=== PATIENT | female | born 1940 | race Caucasian/White ===

== ENCOUNTER → 2016-11-23 | Outpatient (CLI) | payer MEDICARE ==
[~2016-11-23] MED LIST: ASPI-110 PO; ASPI325T PO; ATOR20TA42 PO; ATOR40TA16 PO; CALC1TAB30 PO; CALC600T PO; FISH1000 PO; FISH120014 PO; HYDR-3288 PO; IMIT25TA PO; LEVO500T8 PO; METR500T10 PO; MIRA3350 PO; MIRA33504 PO; OCUVCAP PO; OCUVTAB PO; OMEGCAP PO; TRAM50TA PO
[2016-11-23 10:24] LABS: AUTOMATED NEUTROPHIL # 5.2 TH/MM3 (1.8-7.7); BASOPHIL % 0.4 % (0.0-2.0); EOSINOPHIL # 0.2 TH/MM3 (0-0.4); EOSINOPHIL % 2.2 % (0.0-4.0); HEMATOCRIT 39.8 % (35.0-46.0); HEMO FLAGS DIFF FINAL; LYMPH % 19.3 % (9.0-44.0); LYMPHOCYTE # 1.4 TH/MM3 (1.0-4.8); MEAN CORPUSCULAR HEMOGLOBIN 30.8 PG (27.0-34.0); MEAN CORPUSCULAR HGB CONC 34.6 % (32.0-36.0); MONO % 8.4 % (0.0-8.0); NEUT % 69.7 % (16.0-70.0); PLATELET COUNT 198 TH/MM3 (150-450); RED BLOOD COUNT 4.47 MIL/MM3 (4.00-5.30); RED CELL DISTRIBUTION WIDTH 13.5 % (11.6-17.2); WHITE BLOOD COUNT 7.5 TH/MM3 (4.0-11.0)
--- NOTE | 2016-11-23 13:49 | EKG ---
Date Performed: 11/23/2016 Time Performed: 10:04:20 PTAGE: 75 years EKG: BASELINE ARTIFACT PRESENT. Sinus rhythm NORMAL ECG NO PREVIOUS TRACING DOCTOR: Turner Quintana Interpretating Date/Time 11/23/2016 13:46:25
== END ==
LOC: CPRE 09:43
PROVIDERS: ATTEND Orthopaedic Surgery Orthopaedic Surgery of the Spine
DX: Z01.812 Encounter for preprocedural laboratory examination (principal); Z01.810 Encounter for preprocedural cardiovascular examination; Z01.818 Encounter for other preprocedural examination; M48.06 Spinal stenosis, lumbar region
CPT/HCPCS: 36415; 85025; 93005

== ENCOUNTER → 2016-12-07 | Day surgery (SDC) | payer MEDICARE ==
[~2016-12-07] VITALS: Ht 163.8 cm; Wt 63.2 kg
[~2016-12-07] MED LIST changes: +ACETAMINOPHEN 1000 MG/100 ML VIAL IV ONE; +ACETAMINOPHEN/HYDROcodone 325 MG/7.5 MG TAB PO PRN; +ARTIFICIAL TEARS OPTH OINT 3.5 APPLIC/3.5 GM TUBO ONE; -ASPI325T PO; -ATOR20TA42 PO; +BUPIVACAINE/EPINEPHRINE 0.25% 50 ML VIAL INFIL ONE; +CHLORHEXIDINE GLUCONATE 2 % 1 PACK (2 CLOTHS) TOPICAL PRN; +CLINDAMYCIN PHOS 600 MG/4 ML VIAL ONE; +DEXAMETHASONE SOD PHOS 4 MG/ML VIAL ONE; +FAMOTIDINE 20 MG/2 ML VIAL ONE; -FISH1000 PO; +GELATIN 12 MM/7 MM FOAM ONE; +GENTAMICIN SULFATE 80 MG/2 ML VIAL IRRIGATION ONE; +GENTAMICIN SULFATE 80 MG/2 ML VIAL ONE; -IMIT25TA PO; +INSULIN HUMAN REGULAR 1,000 UNITS/10 ML VIAL SQ PRN; +LACTATED RINGER'S 1000 ML INJ 1,000 ML IV ONE; +LACTATED RINGER'S 1000 ML IV PRN; +METOPROLOL TARTRATE 25 MG TAB PO PRN; +MIDAZOLAM HCL 2 MG/2 ML VIAL ONE; +MORPHINE SULFATE 4 MG/ML INJ IV PUSH PRN; +NEOSTIGMINE 3 MG/3 ML SYR IV ONE; -OCUVTAB PO; +ONDANSETRON HCL 4 MG/2 ML VIAL IV PUSH ONE; +POVIDONE IODINE 5% (ANTISEPSIS KIT) 4 APPLICATIONS EACH NARE PRN; +POVIDONE IODINE 7.5% SCRUB 118 ML BOTTLE TOPICAL SCH; +PROPOFOL 200 MG/20 ML AMP IV ONE; +SODIUM CHLOR 0.9% 1000 ML INJ 1,000 ML IV SCH; +SODIUM CHLORID 0.9% 500 ML IV PRN; +SODIUM CHLORIDE 10 ML FLUSH BID IV FLUSH SCH; +SODIUM CHLORIDE 10 ML FLUSH PRN IV FLUSH; +THROMBIN (TOPICAL) 5,000 UNIT VIAL ONE; +ceFAZolin 2 GM PREMIX 50 ML ONE; +fentaNYL CITRATE 250 MCG/5 ML AMP ONE
[2016-12-07 07:40] VITALS: BP 142/69; PULSE 76; RESP 18; TEMP 97.9; O2SAT 96
--- NOTE | 2016-12-07 11:48 | PD.OP ---
cc: Juan Ritchie. Operative Report Date of Surgery: December 07, 2016 Preoperative Diagnosis: Lumbar spinal stenosis, L4 5. Lumbar spinal stenosis, L5-S1. Left lumbosacral radiculopathy Postoperative Diagnosis: Same Procedure: Lumbar laminectomy L4 5 the left, lateral recess decompression. Lumbar laminectomy from the left L5-S1, lateral recess decompression. Use of dilation port and microscope Anesthesia: Gen. Surgeon: Juan Ritchie Dietetic Tech(s): COLLINS Zuleta Operation and Findings: EBL: 50 cc INDICATION: Patient is a 75-year-old female with significant left hip and leg pain. Investigative studies shows evidence of a high-grade lateral recess stenosis L4 5 and a similar finding L5-S1. Despite conservative care including epidural steroid injections, medications and physical therapy, the patient continued painful and symptomatically. She presents for surgical treatment. NOTE: Kiera Zuleta PA-C was present for the entire surgical procedure as my first beater. In my medical opinion her skill and care was necessary for the proper management of this patient. PROCEDURE: The patient was brought to the operating room and anesthetized in the supine position. The patient was rolled to a prone position on a Coleman frame on a Mumtaz table. All pressure points were protected in the back was scrubbed with alcohol followed by Hibiclens followed by ChloraPrep and draped sterilely. A timeout was done and antibiotics were given. AP and lateral radiographic images were used to identify the proper levels and perform skin markings. We started from the left side at the L4 5 level. A paramedian incision was made and an off-midline fascial incision was made. A dilating system was placed down to the interlaminar space and held provisionally to the side of the table. The microscope was brought into the field. A high-speed bur under the microscope was used to perform a partial bilateral laminectomy from that side. A lateral recess decompression on the left side was accomplished using straight and angled Kerrison punches. A partial medial facetectomy was accomplished. The crossing and exiting nerve roots were completely decompressed. We moved to the L5-S1 level. A separate fascial incision was made. A dilating system was placed down to the interlaminar space and held provisionally to the side of the table. The microscope was brought back into the field. A high- speed bur under the microscope was used to perform a partial bilateral laminectomy from that side. A lateral recess decompression on the left side was accomplished using straight and angled Kerrison punches. A partial medial facetectomy was accomplished. The crossing and exiting nerve roots were completely decompressed. The wound was irrigated copiously. Hemostasis was controlled. The deep fascia was approximated with interrupted 0 Vicryl suture subcutaneous suture with 2-0 Vicryl suture and skin with running intradermal 3-0 Vicryl followed by Dermabond. A field block with local anesthesia was utilized. A sterile dressing was applied. The sponge count and needle counts and instrument counts were all correct. The patient tolerated the procedure well as taken to the recovery room in satisfactory condition. FINDINGS: Was evidence of a high-grade lateral recess stenosis at both levels. The most significant compression involved mostly the S1 nerve root below the L5- S1 disc space. In the lateral recess at the disc space at L4 5 there is also a moderate to high-grade L5 nerve root compression. Juan Ritchie MD December 07, 2016 11:48
--- NOTE | 2016-12-07 12:15 | RADRPT ---
EXAM DATE/TIME: 12/07/2016 10:45 [facility] COMPARISON: No previous studies available for comparison. INDICATIONS : Lumbar spine L4-5 L5-S1 MEDICAL HISTORY : None. SURGICAL HISTORY : None. ENCOUNTER: Initial ACUITY: 1 day PAIN SCORE: Non-responsive. LOCATION: Lumbar L4-5 L5-S1 CONCLUSION: Lateral fluoroscopic image demonstrates temporary probe posteriorly at L5-S1 level.. Travis Beltran MD on December 07, 2016 at 12:13 Board Certified Radiologist. This report was verified electronically.
[2016-12-07 14:27] VITALS: BP 140/79; PULSE 83; RESP 20; TEMP 97.6; O2SAT 97
== END | disposition home or self-care (01) ==
LOC: HSDC 06:35
PROVIDERS: ATTEND Orthopaedic Surgery Orthopaedic Surgery of the Spine
DX: M48.06 Spinal stenosis, lumbar region (principal); M48.07 Spinal stenosis, lumbosacral region; M54.17 Radiculopathy, lumbosacral region
CPT/HCPCS: 00630; 63047; 63048; 72020; 76000; J0131; J1100; J1580; J2250; J2405; J2710; J3010; J7120; J0690

== ENCOUNTER → 2017-01-18 | Outpatient (CLI) | payer MEDICARE ==
[~2017-01-18] MED LIST changes: -ACETAMINOPHEN 1000 MG/100 ML VIAL IV ONE; -ACETAMINOPHEN/HYDROcodone 325 MG/7.5 MG TAB PO PRN; -ARTIFICIAL TEARS OPTH OINT 3.5 APPLIC/3.5 GM TUBO ONE; -BUPIVACAINE/EPINEPHRINE 0.25% 50 ML VIAL INFIL ONE; -CHLORHEXIDINE GLUCONATE 2 % 1 PACK (2 CLOTHS) TOPICAL PRN; -CLINDAMYCIN PHOS 600 MG/4 ML VIAL ONE; -DEXAMETHASONE SOD PHOS 4 MG/ML VIAL ONE; -FAMOTIDINE 20 MG/2 ML VIAL ONE; -GELATIN 12 MM/7 MM FOAM ONE; -GENTAMICIN SULFATE 80 MG/2 ML VIAL IRRIGATION ONE; -GENTAMICIN SULFATE 80 MG/2 ML VIAL ONE; -INSULIN HUMAN REGULAR 1,000 UNITS/10 ML VIAL SQ PRN; -LACTATED RINGER'S 1000 ML INJ 1,000 ML IV ONE; -LACTATED RINGER'S 1000 ML IV PRN; -METOPROLOL TARTRATE 25 MG TAB PO PRN; -MIDAZOLAM HCL 2 MG/2 ML VIAL ONE; -MORPHINE SULFATE 4 MG/ML INJ IV PUSH PRN; -NEOSTIGMINE 3 MG/3 ML SYR IV ONE; -ONDANSETRON HCL 4 MG/2 ML VIAL IV PUSH ONE; -POVIDONE IODINE 5% (ANTISEPSIS KIT) 4 APPLICATIONS EACH NARE PRN; -POVIDONE IODINE 7.5% SCRUB 118 ML BOTTLE TOPICAL SCH; -PROPOFOL 200 MG/20 ML AMP IV ONE; -SODIUM CHLOR 0.9% 1000 ML INJ 1,000 ML IV SCH; -SODIUM CHLORID 0.9% 500 ML IV PRN; -SODIUM CHLORIDE 10 ML FLUSH BID IV FLUSH SCH; -SODIUM CHLORIDE 10 ML FLUSH PRN IV FLUSH; -THROMBIN (TOPICAL) 5,000 UNIT VIAL ONE; -ceFAZolin 2 GM PREMIX 50 ML ONE; -fentaNYL CITRATE 250 MCG/5 ML AMP ONE
[2017-01-18 15:55] LABS: AUTOMATED NEUTROPHIL # 4.3 TH/MM3 (1.8-7.7); BASOPHIL % 0.5 % (0.0-2.0); EOSINOPHIL # 0.1 TH/MM3 (0-0.4); EOSINOPHIL % 1.9 % (0.0-4.0); HEMATOCRIT 39.4 % (35.0-46.0); HEMO FLAGS DIFF FINAL; LYMPH % 22.4 % (9.0-44.0); LYMPHOCYTE # 1.4 TH/MM3 (1.0-4.8); MEAN CELL VOLUME 90.1 FL (80.0-100.0); MEAN CORPUSCULAR HEMOGLOBIN 30.1 PG (27.0-34.0); MEAN CORPUSCULAR HGB CONC 33.5 % (32.0-36.0); MONO % 8.2 % (0.0-8.0); PLATELET COUNT 179 TH/MM3 (150-450); RED BLOOD COUNT 4.37 MIL/MM3 (4.00-5.30); RED CELL DISTRIBUTION WIDTH 13.8 % (11.6-17.2); WHITE BLOOD COUNT 6.4 TH/MM3 (4.0-11.0)
[2017-01-18 15:58] LABS: BLOOD, URINE TRACE (NEG); GLUCOSE,URINE NEG (NEG); KETONE, URINE NEG (NEG); NITRITE,URINE NEG (NEG); SQUAMOUS EPITHELIAL CELL URINE <1 /hpf (0-5); URINE COLOR LIGHT-YELLOW (YELLW/STRAW)
[2017-01-18 16:25] LABS: ALT (GPT) 25 U/L (10-53); AMYLASE 28 U/L (25-115); ANION GAP 7 MEQ/L (5-15); AST (GOT) 18 U/L (15-37); BICARBONATE 28.1 MEQ/L (21.0-32.0); BLOOD UREA NITROGEN 19 MG/DL (7-18); CHLORIDE 105 MEQ/L (98-107); GLOMERULAR FILTRATION RATE 66 ML/MIN (>89); POTASSIUM 3.8 MEQ/L (3.5-5.1); SODIUM (NA) 140 MEQ/L (136-145)
[2017-01-18 16:28] LABS: ALKALINE PHOSPHATASE 103 U/L (45-117); TOTAL BILIRUBIN ADULT 0.4 MG/DL (0.2-1.0)
== END ==
LOC: PLAB 11:29
PROVIDERS: ATTEND Family Medicine
DX: R10.9 Unspecified abdominal pain (principal); R50.9 Fever, unspecified; R82.90 Unspecified abnormal findings in urine
CPT/HCPCS: 36415; 80053; 81001; 82150; 83690; 85025; 87040; 87086

== ENCOUNTER 2017-01-19 11:33 | Emergency (ER) | payer MEDICARE ==
[~2017-01-19] VITALS: Ht 162.6 cm; Wt 61.7 kg
[~2017-01-19 11:33] MED LIST changes: -CALC600T PO; -LEVO500T8 PO; -METR500T10 PO; -MIRA3350 PO; -OMEGCAP PO; -TRAM50TA PO
[2017-01-19 11:38] VITALS: BP 150/90; PULSE 86; RESP 16; TEMP 97.9; O2SAT 99
[2017-01-19] MEDS ORDERED: SODIUM CHLOR 0.9% 1000 ML INJ 1,000 ML IV SCH (11:50)
[2017-01-19] MEDS ORDERED: CALC600T PO (11:58)
[2017-01-19] MEDS ORDERED: LEVO500T8 PO (11:58)
[2017-01-19] MEDS ORDERED: METR500T10 PO (11:58)
[2017-01-19] MEDS ORDERED: MIRA3350 PO (11:58)
[2017-01-19] MEDS ORDERED: OMEGCAP PO (11:58)
[2017-01-19] MEDS ORDERED: SODIUM CHLORIDE 0.9% FLUSH 10 ML FLUSH IV FLUSH PRN (12:00)
[2017-01-19] MEDS ORDERED: ONDANSETRON HCL 4 MG/2 ML VIAL IV ONE (12:15)
[2017-01-19] MEDS ORDERED: MORPHINE SULFATE 4 MG/ML INJ IV PUSH ONE (12:15)
[2017-01-19 12:23] LABS: BASOPHIL % 0.4 % (0.0-2.0); EOSINOPHIL # 0.1 TH/MM3 (0-0.4); EOSINOPHIL % 0.8 % (0.0-4.0); HEMATOCRIT 38.8 % (35.0-46.0); HEMO FLAGS DIFF FINAL; LYMPH % 16.6 % (9.0-44.0); LYMPHOCYTE # 1.1 TH/MM3 (1.0-4.8); MEAN CORPUSCULAR HGB CONC 34.4 % (32.0-36.0); MONO % 5.8 % (0.0-8.0); NEUT % 76.4 % (16.0-70.0); PLATELET COUNT 181 TH/MM3 (150-450); RED BLOOD COUNT 4.31 MIL/MM3 (4.00-5.30); RED CELL DISTRIBUTION WIDTH 12.7 % (11.6-17.2); WHITE BLOOD COUNT 6.6 TH/MM3 (4.0-11.0)
[2017-01-19 12:31] VITALS: BP 168/86; PULSE 77; RESP 18; O2SAT 99
--- NOTE | 2017-01-19 12:45 | PD ---
HPI Chief Complaint: Abdominal Pain Time Seen by Provider: 11:55 Travel History International Travel<30 days: No Contact w/Intl Traveler<30days: No Traveled to known affect area: No History of Present Illness HPI Is a 76 year-old woman who presents to the emergency department complaining of 2 weeks of left lower quadrant abdominal pain. She had a lumbar laminectomy done about [address] Juan Amador. She had done well. She started getting this abdominal pain about 2 weeks ago. Is been intermittent, and sometimes severe. Is been worsening over the past couple days. She saw Dr. Mchugh yesterday who diagnosed her with diverticulitis and started her on Levaquin and Flagyl. She had blood work done, was sent for a CT scan today. She started having worsening pain in the morning and so she came here instead. She was taking oxycodone for pain for her back. She is not now. She has chronic constipation and takes MiraLAX every other day normally. She started taking it every day after back surgery. Last bowel movement was last night and she does not feel like she's been more constipated. Only abdominal surgical histories a hysterectomy, and surgery for kidney stones. She's never had diverticulitis before. She otherwise has been feeling generally well and healthy. History Past Medical History Narrative Medical Hypertension, not on medication Hyperlipidemia Migraines Influenza Vaccination: Yes Social History Alcohol Use: No Tobacco Use: No Allergies-Medications (Allergen,Severity, Reaction): Coded Allergies: Advil (Verified Allergy, Severe, RED RASH ALL OVER BODY, 01/19/17) Darvocet-N 100 (Verified Allergy, Severe, VOMITING, 01/19/17) Keflex (Verified Allergy, Severe, HIVES, 01/19/17) Pneumococcal Vaccine (Verified Allergy, Severe, Swelling, 01/19/17) Tetanus Toxoid (Verified Allergy, Severe, Swelling, 01/19/17) Uncoded Allergies: NUMBER 5 DYE (Adverse Reaction, Severe, HIVES, 08/19/10) Reported Meds & Prescriptions Reported Meds & Active Scripts Active [place] (Hydrocodone-Acetaminophen) 7.5-325 mg Tab 1 Tab PO Q4H PRN Reported Levofloxacin 500 Mg Tablet 500 Mg PO DAILY Metronidazole 500 Mg Tab 500 Mg PO TID Miralax Powder (Polyethylene Glycol 3350 Powder) 17 Gm Powd 17 Gm PO EVERY OTHER DAY Mix and dissolve one measuring cap-ful (17 grams) in water or juice. [place]-3 Fish Oil/Vitamin (Fish Oil-Cholecalciferol) 1,000-1,000 Mg Cap 1 Cap PO DAILY Calcium/Vitamin D (Calcium Carbonate-Vitamin D) 600-400 Mg-Unit Tab 2 Tab PO DAILY Aspirin 81 (Aspirin) 81 Mg Tabdr 81 Mg PO DAILY Ocuvite Lutein (Multiple Vitamins W/ Minerals) 1 Cap Cap 1 Cap PO DAILY Atorvastatin (Atorvastatin Calcium) 40 Mg Tab 40 Mg PO EVERY OTHER DAY Review of Systems Except as stated in HPI: all other systems reviewed are Neg Physical Exam Narrative GENERAL: Well-appearing 76 year-old woman, no acute distress. SKIN: Focused skin assessment warm/dry. HEAD: Atraumatic. Normocephalic. EYES: Pupils equal and round. No scleral icterus. No injection or drainage. ENT: No nasal bleeding or discharge. Mucous membranes pink and moist. NECK: Trachea midline. No JVD. CARDIOVASCULAR: Regular rate and rhythm. No murmur appreciated. RESPIRATORY: No accessory muscle use. Clear to auscultation. Breath sounds equal bilaterally. GASTROINTESTINAL: Abdomen is soft. Maybe a little bit distended. She has epigastric and left lower quadrant tenderness to palpation. No rebound or guarding. MUSCULOSKELETAL: No obvious deformities. No clubbing. No cyanosis. No edema. NEUROLOGICAL: Awake and alert. No obvious cranial nerve deficits. Motor grossly within normal limits. Normal speech. PSYCHIATRIC: Appropriate mood and affect; insight and judgment normal. Data Data Last Documented VS Vital Signs Date Time Temp Pulse Resp B/P Pulse Ox O2 Delivery O2 Flow Rate FiO2 01/19/17 12:50 18 01/19/17 12:31 77 168/86 99 Room Air 01/19/17 11:38 97.9 Orders Complete Blood Count With Diff (01/19/17 11:50) Lipase (01/19/17 11:50) Lactic Acid (01/19/17 11:50) Iv Access Insert/Monitor (01/19/17 11:50) NPO (01/19/17 11:50) Sodium Chlor 0.9% 1000 Ml Inj (Ns 1000 M (01/19/17 11:50) Sodium Chloride 0.9% Flush (Ns Flush) (01/19/17 12:00) Morphine Inj (Morphine Inj) (01/19/17 12:15) Ondansetron Inj (Zofran Inj) (01/19/17 12:15) Ct Abd/Pel W Iv Contrast(Rout) (01/19/17 ) Iohexol 350 Inj (Omnipaque 350 Inj) (01/19/17 12:57) Labs Laboratory Tests Test 01/19/17 12:15 White Blood Count 6.6 TH/MM3 Red Blood Count 4.31 MIL/MM3 Hemoglobin 13.3 GM/DL Hematocrit 38.8 % Mean Corpuscular Volume 90.0 FL Mean Corpuscular Hemoglobin 31.0 PG Mean Corpuscular Hemoglobin 34.4 % Concent Red Cell Distribution Width 12.7 % Platelet Count 181 TH/MM3 Mean Platelet Volume 8.2 FL Neutrophils (%) (Auto) 76.4 % Lymphocytes (%) (Auto) 16.6 % Monocytes (%) (Auto) 5.8 % Eosinophils (%) (Auto) 0.8 % Basophils (%) (Auto) 0.4 % Neutrophils # (Auto) 5.0 TH/MM3 Lymphocytes # (Auto) 1.1 TH/MM3 Monocytes # (Auto) 0.4 TH/MM3 Eosinophils # (Auto) 0.1 TH/MM3 Basophils # (Auto) 0.0 TH/MM3 CBC Comment DIFF FINAL Differential Comment Lactic Acid Level 1.3 mmol/L Lipase 94 U/L [facility] Medical Decision Making Medical Screen Exam Complete: Yes Emergency Medical Condition: Yes Interpretation(s) CBC is unremarkable. Lactate is unremarkable Lipase is normal CT abdomen and pelvis: Diverticulosis without inflammation suggest diverticulitis. Differential Diagnosis Diverticulitis, constipation, abscess, gastritis, colitis, other Narrative Course Medical decision making This 76 year-old woman presents to the emergency department complaining of left- sided abdominal pain. Suspect diverticulitis. She doesn't seem to be constipated. I don't think she has a kidney stone. I don't think she has urinary retention or complication from her back surgery. FINAL: 76 year-old woman, left-sided abdominal pain, etiology unclear. My suspicion is constipation although the patient states she had a normal bowel movement yesterday. She does take MiraLAX daily. I recommend increase use of the MiraLAX. Diverticulitis also possible. She started antibiotics yesterday. They don't see any significant inflammation although she does have diverticulosis. We'll recommend continuing antibiotics. I don't think this is a combination of her back surgery. She otherwise looks well. We'll recommend Tylenol for pain, tramadol if needed for severe pain, return to the emergency department for worsening symptoms, and close outpatient follow-up. Diagnosis Primary Impression: Abdominal pain Additional Impression: Lung nodule Additional Instructions: Continue antibiotics as prescribed by your primary physician. Take Tylenol as needed for pain. Take tramadol if needed for severe pain. Take MiraLAX daily and titrate to regular loose bowel movement. Follow-up with Dr. Mchugh on Sunday. You will also need a repeat CT in 6 months to follow-up on a 7 mm nodule in the right lower lobe of your lung. Return to the emergency department for any worsening abdominal pain, high fevers , vomiting, bloody diarrhea, or any other new or worsening symptoms. Med/Other Pt SpecificInfo: Prescription(s) given Scripts Tramadol 50 Mg Tab50 Mg PO Q8H PRN (PAIN) #15 TAB Ref 0 Prov:Russ Lujan MD 01/19/17 Disposition: 01 DISCHARGE HOME Condition: Stable Russ Lujan MD Jan 19, 2017 12:45
[2017-01-19] MEDS ORDERED: IOHEXOL 350 MG/ML 10 ML VIAL (for RAD DIAG) IV ONE (12:57)
--- NOTE | 2017-01-19 13:13 | RADRPT ---
EXAM DATE/TIME: 01/19/2017 12:42 [facility] COMPARISON: No previous studies available for comparison. INDICATIONS : Left lower quadrant pain. IV CONTRAST: 85 cc Omnipaque 350 (iohexol) IV ORAL CONTRAST: No oral contrast ingested. RADIATION DOSE: 7.88 CTDIvol (mGy) MEDICAL HISTORY : Renal calculi. Cerebrovascular disease. Hypertension. SURGICAL HISTORY : Hysterectomy. Lumbar laminectomy. ENCOUNTER: Initial ACUITY: 2 weeks PAIN SCALE: 9/10 LOCATION: Left lower quadrant TECHNIQUE: Volumetric scanning of the abdomen and pelvis was performed. Using automated exposure control and ad justment of the mA and/or kV according to patient size, radiation dose was kept as low as reasonably achievable to obtain optimal diagnostic quality images. DICOM format image data is available electro nically for review and comparison. FINDINGS: There is a 7 mm nodule in the right lower lobe, noncalcified. Additional calcified granulomata are pr esent lungs. Mild fatty liver. Spleen, adrenals, kidneys and pancreas demonstrate no acute findings. Multiple bila teral renal cysts measuring up to 6.1 cm on the right and 5.6 cm on the left. There is no free fluid. No bowel obstruction. No adenopathy. There is colonic diverticulosis without evidence for diverticulitis. There is a mild rotatory fracture lumbar levoscoliosis. CONCLUSION: 1. 7 mm nodule right lower lobe indeterminate. Followup noncontrast chest CT recommended in 6 months. 2. No acute findings within the abdomen and pelvis. Colonic diverticulosis without diverticulitis. La rge bilateral renal cysts. Mild dilatation of the right renal collecting system. Small nonobstructing calcifications in the right kidney. Jean Claude Kramer MD on January 19, 2017 at 13:05 Board Certified Radiologist. This report was verified electronically.
[2017-01-19] MEDS ORDERED: TRAM50TA PO (13:32)
[2017-01-19 14:04] VITALS: BP 160/78; PULSE 78; RESP 16; O2SAT 98
== END 2017-01-19 14:12 | disposition home or self-care (01) ==
LOC: PHED 11:33
DX: R10.32 Left lower quadrant pain (principal); R91.1 Solitary pulmonary nodule; I10 Essential (primary) hypertension; E78.5 Hyperlipidemia, unspecified; Z98.890 Other specified postprocedural states; Z86.69 Personal history of other diseases of the nervous system and sense organs
CPT/HCPCS: 74177; 83605; 83690; 85025; 96361; 96374; 96375; 99285; J2270; J2405; J7030; Q9967

== ENCOUNTER 2017-11-26 12:26 | Emergency (ER) | payer MEDICARE ==
[~2017-11-26] VITALS: Ht 162.6 cm; Wt 62.7 kg
[~2017-11-26 12:26] MED LIST changes: -ASPI-110 PO; +ASPI1TAB57 PO; -CALC1TAB30 PO; +CALC600T PO; -FISH120014 PO; +LEVO500T8 PO; +METR1TAB76 PO; +MIRA3350 PO; -MIRA33504 PO; +OMEGCAP PO; +TRAM50TA PO
[2017-11-26 12:39] VITALS: BP 196/88; PULSE 79; RESP 16; TEMP 99; O2SAT 97
--- NOTE | 2017-11-26 14:49 | RADRPT ---
EXAM DATE/TIME: 11/26/2017 14:07 [facility] COMPARISON: CT ABDOMEN & PELVIS W CONTRAST, January 19, 2017, 12:42. INDICATIONS : Fall, left posterior pelvic pain. MEDICAL HISTORY : None. SURGICAL HISTORY : lumbar laminectomy ENCOUNTER: Initial ACUITY: 1 day PAIN SCORE: 5/10 LOCATION: Left posterior pelvis FINDINGS: AP view of the pelvis demonstrates no fracture or dislocation. The bones are undermineralized. Sacroi liac joints demonstrate no abnormality. There is moderate right and mild left hip joint osteoarthriti s with joint space narrowing and osteophytes. Stable area of sclerosis is present in the right intert rochanteric region. Soft tissues demonstrate no acute finding. There is degenerative disc disease in the visualized inferior lumbar spine. CONCLUSION: 1. No acute pelvis abnormality is identified. 2. 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 Andrea Carmichael MD on November 26, 2017 at 14:44 Board Certified Radiologist. This report was verified electronically.
--- NOTE | 2017-11-26 14:51 | RADRPT ---
EXAM DATE/TIME: 11/26/2017 14:07 [facility] COMPARISON: No previous studies available for comparison. INDICATIONS : Fall, left knee pain and bruising. MEDICAL HISTORY : None. SURGICAL HISTORY : lumbar laminectomy ENCOUNTER: Initial ACUITY: 1 day PAIN SCORE: 5/10 LOCATION: Left knee FINDINGS: 4 views of the left knee demonstrate no fracture or dislocation. The bones are undermineralized. Ther e is mild medial compartment joint space narrowing with medial compartment osteophytes. No significan t joint effusion is identified. Small patellar osteophytes are present. No soft tissue abnormality is seen. CONCLUSION: No acute left knee abnormality is identified. There is medial compartment osteoarthritis. Andrea Carmichael MD on November 26, 2017 at 14:46 Board Certified Radiologist. This report was verified electronically.
--- NOTE | 2017-11-26 14:54 | RADRPT ---
EXAM DATE/TIME: 11/26/2017 14:07 [facility] COMPARISON: No previous studies available for comparison. INDICATIONS : Fall, Left humerus pain. MEDICAL HISTORY : None. SURGICAL HISTORY : lumbar laminectomy ENCOUNTER: Initial ACUITY: 1 day PAIN SCORE: 5/10 LOCATION: Left humerus FINDINGS: Two view examination of the left humerus demonstrates no evidence of fracture or dislocation. Bony m ineralization is normal. Soft tissue abnormality with lucency in the distal posterior arm. No radio paque foreign bodies. CONCLUSION: Osseous structures of the arm are grossly. William Wilcox MD on November 26, 2017 at 14:52 Board Certified Radiologist. This report was verified electronically.
--- NOTE | 2017-11-26 15:08 | RADRPT ---
EXAM DATE/TIME: 11/26/2017 14:18 [facility] COMPARISON: No previous studies available for comparison. INDICATIONS : Fall, left hand pain and bruising 1st metacarpal. MEDICAL HISTORY : None. SURGICAL HISTORY : lumbar laminectomy ENCOUNTER: Initial ACUITY: 1 day PAIN SCORE: 0/10 LOCATION: Left hand FINDINGS: Three-view examination demonstrates diffuse osteopenia. There is moderate severity osteoarthritic ch yeimy in the 1st CMC articulation without evidence of fracture or dislocation. No radiopaque foreign bodies. No significant arthropathy and interphalangeal joints. CONCLUSION: 1. No evidence of recent bony injury. 2. Moderate severity osteoarthritis 1st CMC articulation without evidence of fracture or dislocation. William Wilcox MD on November 26, 2017 at 14:53 Board Certified Radiologist. This report was verified electronically.
--- NOTE | 2017-11-26 15:30 | PD ---
HPI Chief Complaint: Musculoskeletal Complaint Time Seen by Provider: 13:42 Travel History International Travel<30 days: No Contact w/Intl Traveler<30days: No Traveled to known affect area: No History of Present Illness HPI This is a 76-year-old female here for left knee, hand, arm pain after she tripped and fell from a standing position. She reports she was walking on a sidewalk today when she tripped on uneven sidewalk falling forward onto left flexed knee and left upper extremity. She did sustain an abrasion to her chin caused by the ground. There was no loss of consciousness. She is not anticoagulated. She remembers the entire event. Denies headache, visual changes, neck pain, chest pain, shortness of breath, abdominal pain, paresthesia or weakness of the extremities. She reports constant, aching, nonradiating pain in the left hand and knee. Symptom severity is moderate. No aggravating or alleviating factors. PFSH Past Medical History Blood Disorders: No Cancer: Yes (SKIN CANCERS) Cardiovascular Problems: No High Cholesterol: Yes Diabetes: No Diminished Hearing: No Endocrine: No Gastrointestinal Disorders: Yes (HX ULCER AND GERD) Genitourinary: No Hepatitis: No Hiatal Hernia: No Immune Disorder: No Implanted Vascular Access Dvce: No Kidney Stones: Yes (MULTIPLE TIMES & REMOVAL BY SURGICAL INTERVENTION) Musculoskeletal: Yes (LUMBAR LAMINECTOMY NOVEMBER 2016) Neurologic: Yes ("MINI"STROKE 08/17/2013, PAST HX MIGRAINES) Psychiatric: No Reproductive: No Respiratory: No Immunizations Current: Yes (PT HAS DEVELOPED ALLERGIC RX TO PNEUMONIA & TETANUS VACCINES) Migraines: Yes Thyroid Disease: No Tetanus Vaccination: < 5 Years Influenza Vaccination: Yes ?: Not Past Surgical History AICD: No Body Medical Devices: HARDWARE RIGHT ELBOW Ear Surgery: Yes (BILATERAL CATARACT) Eye Surgery: Yes (BILAT CATARACTS) Genitourinary Surgery: Yes (SURGERY X2 FOR KIDNEY STONES) Gynecologic Surgery: Yes (HYSTERECTOMY) Hysterectomy: Yes Joint Replacement: No Pacemaker: No Thoracic Surgery: Yes (LEFT LUMPECTOMY) Tonsillectomy: Yes Other Surgery: Yes (CYST REMOVED LT BREAST, ) Social History Alcohol Use: No Tobacco Use: No Substance Use: No Allergies-Medications (Allergen,Severity, Reaction): Coded Allergies: acetaminophen (Unverified Allergy, Severe, VOMITING, 11/26/17) cephalexin (Unverified Allergy, Severe, HIVES, 11/26/17) ibuprofen (Unverified Allergy, Severe, RED RASH ALL OVER BODY, 11/26/17) pneumococcal vaccine (Unverified Allergy, Severe, Swelling, 11/26/17) propoxyphene (Unverified Allergy, Severe, VOMITING, 11/26/17) tetanus toxoid, adsorbed (Unverified Allergy, Severe, Swelling, 11/26/17) Uncoded Allergies: NUMBER 5 DYE (Adverse Reaction, Severe, HIVES, 08/19/10) Reported Meds & Prescriptions Reported Meds & Active Scripts Active Tramadol (Tramadol HCl) 50 Mg Tab 50 Mg PO Q8H PRN [place] (Hydrocodone-Acetaminophen) 7.5-325 mg Tab 1 Tab PO Q4H PRN Reported Levofloxacin 500 Mg Tablet 500 Mg PO DAILY Metronidazole 500 Mg Tab 500 Mg PO TID Miralax Powder (Polyethylene Glycol 3350 Powder) 17 Gm Powd 17 Gm PO EVERY OTHER DAY Mix and dissolve one measuring cap-ful (17 grams) in water or juice. [place]-3 Fish Oil/Vitamin (Fish Oil-Cholecalciferol) 1,000-1,000 Mg Cap 1 Cap PO DAILY Calcium/Vitamin D (Calcium Carbonate-Vitamin D) 600-400 Mg-Unit Tab 2 Tab PO DAILY Aspirin 81 (Aspirin) 81 Mg Tabdr 81 Mg PO DAILY Ocuvite Lutein (Multiple Vitamins W/ Minerals) 1 Cap Cap 1 Cap PO DAILY Atorvastatin (Atorvastatin Calcium) 40 Mg Tab 40 Mg PO EVERY OTHER DAY Review of Systems Except as stated in HPI: all other systems reviewed are Neg General / Constitutional: No: Fever Eyes: No: Visual changes HENT: No: Headaches Cardiovascular: No: Chest Pain or Discomfort Respiratory: No: Shortness of Breath Physical Exam Narrative GENERAL: Alert and well-appearing 76-year-old female SKIN: Warm and dry. Abrasion to left knee, left hand, chin HEAD: Normocephalic. Atraumatic EYES: Pupils equal, round, reactive to light. EOMs intact. No injection or drainage. ENT: Small chip fracture to central incisor. No tooth avulsion. No oral/ tongue lacerations. NECK: Supple, trachea midline. No cervical midline tenderness. Freely moves the neck. CARDIOVASCULAR: Regular rate and rhythm without murmurs, gallops, or rubs. No chest wall tenderness RESPIRATORY: Breath sounds equal bilaterally. No accessory muscle use. Even and equal chest rise GASTROINTESTINAL: Abdomen soft, non-tender, nondistended. MUSCULOSKELETAL: No cyanosis, or edema. Pelvis is stable. Mild tenderness to the left iliac crest. LUE: + Tenderness left thumb and proximal humerus. No obvious deformity. Patient has full range of motion of the shoulder, elbow, wrists, all fingers. Normal sensation. Brisk cap refill. LLE: +TTP over the anterior aspect of the knee. Ecchymosis and mild swelling present. The joint is stable. No effusion. Full range of motion. Normal sensation distally. Palpable pulses. Brisk cap refill. BACK: Nontender without obvious deformity. No step-off deformity. No crepitus. No CVA tenderness. Data Data Last Documented VS Vital Signs Date Time Temp Pulse Resp B/P (MAP) Pulse Ox O2 Delivery O2 Flow Rate FiO2 11/26/17 12:39 99.0 79 16 196/88 (124) 97 Orders Orders Knee, Complete (4vws) (11/26/17 ) Hand, Complete ([id number]) (11/26/17 ) Pelvis, Ap Only (Routine) (11/26/17 ) Humerus (Min 2vws) (11/26/17 ) MDM Medical Decision Making Medical Screen Exam Complete: Yes Emergency Medical Condition: Yes Differential Diagnosis Fracture versus contusion versus sprain versus ICH Narrative Course 76-year-old female here with multiple injuries from a fall from a standing position. She has a normal neurologic exam. She is not anticoagulated. Her extremities are neurovascularly intact. X-rays are negative for fracture. She is to follow-up with her primary doctor. Diagnosis Primary Impression: Contusion of left knee Qualified Codes: S80.02XA - Contusion of left knee, initial encounter Additional Impressions: Contusion of left hand Qualified Codes: S60.222A - Contusion of left hand, initial encounter Chipped tooth Qualified Codes: S02.5XXA - Fracture of tooth (traumatic), initial encounter for closed fracture Referrals: Dentist Primary Care Physician Additional Instructions: Ice and elevate the extremities. Follow-up with your primary doctor. Follow-up with your dentist. Return if you have new or worsening symptoms Disposition: 01 DISCHARGE HOME Condition: Stable Neyda Wallace Leanna BRISENO Nov 26, 2017 15:30
== END 2017-11-26 15:40 | disposition home or self-care (01) ==
LOC: PHED 12:26 → PHEFT 15:40
DX: S80.02XA Contusion of left knee, initial encounter (principal); S60.222A Contusion of left hand, initial encounter; S02.5XXA Fracture of tooth (traumatic), initial encounter for closed fracture; S00.81XA Abrasion of other part of head, initial encounter; W01.0XXA Fall on same level from slipping, tripping and stumbling without subsequent striking against object, initial encounter; Y92.480 Sidewalk as the place of occurrence of the external cause; K21.9 Gastro-esophageal reflux disease without esophagitis; E78.00 Pure hypercholesterolemia, unspecified; Z86.73 Personal history of transient ischemic attack (TIA), and cerebral infarction without residual deficits
CPT/HCPCS: 72170; 73060; 73130; 73564; 99284